=== PATIENT | male | born 1960 | race African-American/Black ===

== ENCOUNTER → 2020-04-07 | Outpatient (CLI) | payer BC ==
[~2020-04-07] MED LIST: ETOD400T PO; FERR325T14 PO; HYDR-2761 PO; LISI-334 PO; LISI1TAB23 PO; MELO15TA6 PO; MULT-245 PO; WARF5TAB2 PO
[2020-04-07 09:47] LABS: ALBUMIN 3.9 g/dL (3.4-5.0); ANION GAP 5 (6-14); BLOOD UREA NITROGEN 17 mg/dL (8-26); CALCIUM 9.3 mg/dL (8.5-10.1); CARBON DIOXIDE 33 mmol/L (21-32); CHLORIDE 100 mmol/L (98-107); CREATININE 1.3 mg/dL (0.7-1.3); GFR 67.9; GLUCOSE 94 mg/dL (70-99); POTASSIUM 3.8 mmol/L (3.5-5.1); SODIUM 138 mmol/L (136-145)
[2020-04-07 09:48] LABS: C-REACTIVE PROTEIN < 0.5 mg/L (0-3.3)
[2020-04-07 09:59] LABS: BASO % 1 % (0-3); EOS # 0.1 x10^3/uL (0.0-0.7); EOS % 1 % (0-3); HEMATOCRIT 45.1 % (39.0-53.0); HEMOGLOBIN 15.3 g/dL (13.0-17.5); LYMPH # 1.6 x10^3/uL (1.0-4.8); LYMPH % 37 % (24-48); MEAN CORPUSCULAR HEMOGLOBIN 31 pg (25-35); MEAN CORPUSCULAR HGB CONC 34 g/dL (31-37); MEAN CORPUSCULAR VOLUME 91 fL (79-100); MONO # 0.3 x10^3/uL (0.0-1.1); MONO % 8 % (0-9); NEUT # 2.3 x10^3/uL (1.8-7.7); NEUT % 54 % (31-73); PLATELET COUNT 182 x10^3/uL (140-400); RED BLOOD COUNT 4.98 x10^6/uL (4.30-5.70); RED CELL DISTRIBUTION WIDTH 12.9 % (11.5-14.5); WHITE BLOOD COUNT 4.3 x10^3/uL (4.0-11.0)
[2020-04-07 10:11] LABS: PROTHROMBIN TIME PATIENT 13.3 SEC (11.7-14.0)
--- NOTE | 2020-04-07 13:13 | EKG ---
[facility] [address] [place] [address] Test Date: 2020-04-07 Test Time: 13:11:07 Pat Name: ROSARIO BLANC Department: Room: Gender: M Circuits Engineer: TINY : 1960 Requested By: ASH GILES Order Number: [id number] Reading MD: Leo Gann MD Measurements Intervals [place] Rate: 59 P: 36 CO: 204 QRS: -14 QRSD: 94 T: 39 QT: 390 QTc: 390 Interpretive Statements SINUS RHYTHM Electronically Signed On 04-08-2020 9:54:57 CDT by Leo Gann MD
--- NOTE | 2020-04-07 14:52 | RAD ---
Chest radiograph 04/07/2020 8:47 AM INDICATION: Tobacco abuse, preoperative evaluation COMPARISON: None available TECHNIQUE: Frontal and lateral views of the chest are provided. FINDINGS: The cardiomediastinal silhouette is within normal limits. There are no pleural effusions. There is no pulmonary vascular congestion. There is no pneumothorax. The lungs are clear. No significant osseous abnormality is identified. IMPRESSION: No acute cardiopulmonary process. Electronically signed by: Karin Negrete MD (04/07/2020 2:49 PM) [id number]
[2020-04-08 01:08] LABS: HEMOGLOBIN A1C 5.4 % (4.8-5.6)
== END | disposition home or self-care (01) ==
LOC: SURGPAT 13:14
PROVIDERS: ATTEND Orthopaedic Surgery
DX: Z01.812 Encounter for preprocedural laboratory examination (principal); M17.0 Bilateral primary osteoarthritis of knee; I10 Essential (primary) hypertension; Z96.652 Presence of left artificial knee joint
CPT/HCPCS: 36415; 71046; 80048; 82040; 82306; 83036; 85025; 85610; 85730; 86140; 87641; 93005

== ENCOUNTER 2020-04-29 08:33 | Observation (INO) | payer BC ==
[2020-04-29] VITALS (7 sets, daily range): BP systolic 110–142; BP diastolic 62–85
[~2020-04-29] VITALS: Ht 177.8 cm; Wt 99.4 kg
[~2020-04-29 08:33] MED LIST changes: +ACETAMINOPHEN 500 MG TABLET PO PRN; +GABAPENTIN 300 MG CAPSULE. PO PRN; +HYDROmorphone 2 MG/ML VIAL IV PRN; +IV RINGERS,LACTATED 1000ML 1,000 ML IV SCH; +MELOXICAM 7.5 MG TABLET PO PRN; +MORPHINE SULFATE 2 MG/ML VIAL. IV PRN; +MORPHINE SULFATE 5 MG, KETOROLAC 30MG VIAL 30 MG, ROPIVacaine 0.5% PF 60 ML, EPINEPHrin... INT ART ONE; +ONDANSETRON PF 4 MG/2 ML VIAL. IV PRN; +PROCHLORPERAZINE 10 MG/2 ML VIAL. IV PRN; +TRANEXAMIC ACID 1,000 MG in IV NS 50ML -- 1ST BAG INJ ONE; +TRANEXAMIC ACID 1,000 MG in IV NS 50ML -- 2ND BAG INJ ONE; +fentaNYL PF VIAL 100 MCG/2 ML VIAL IV PRN
[2020-04-29] MEDS ORDERED: LIDOCAINE 2% PF 5 ML VIAL. ONE (08:49)
[2020-04-29] MEDS ORDERED: PROPOFOL 10 MG/ML (20ML) VIAL. IV ONE (08:49)
[2020-04-29] MEDS ORDERED: ONDANSETRON PF 4 MG/2 ML VIAL. ONE (08:49)
[2020-04-29] MEDS ORDERED: DEXAMETHASONE SOD PHOS 4 MG/ML VIAL ONE (08:49)
[2020-04-29] MEDS ORDERED: fentaNYL PF VIAL 100 MCG/2 ML VIAL ONE (08:49)
[2020-04-29] MEDS ORDERED: WARF-31 PO (09:42)
[2020-04-29] MEDS ORDERED: MELO15TA23 PO (09:43)
[2020-04-29 09:59] LABS: PROTHROMBIN TIME PATIENT 13.7 SEC (11.7-14.0)
--- NOTE | 2020-04-29 10:38 | HP ---
ADMIT DATE: 04/29/2020 CHIEF COMPLAINT: Bilateral knee pain, left worse than right. HISTORY OF PRESENT ILLNESS: The patient has atraumatic onset bilateral knee pain over the past couple of years, left much worse than right, significantly worsening and affecting his activities of daily living. He had previously made arrangements at [facility] injections, but those were not performed due to COVID and we had previously discussed in clinic more definitive treatment options. PAST MEDICAL HISTORY: Significant for degenerative joint disease, kidney stones, hypertension. PAST SURGICAL HISTORY: Right total hip arthroplasty, kidney stone surgery with lithotripsy, appendectomy and prostate cancer surgery. FAMILY HISTORY: Father is with heart problems and mother is alive and healthy. SOCIAL HISTORY: Denies smoking, alcohol or drug use. MEDICATIONS: Hydrocodone, multivitamin, lisinopril. ALLERGIES: He has no known drug allergies. REVIEW OF SYSTEMS: Denies any recent fever, chills, constitutional symptoms, radiating pain, focal weakness, numbness, tingling, visual changes, but is significant for bilateral knee pain, activity related left worse than right. PHYSICAL EXAMINATION: VITAL SIGNS: Per admission sheet. HEENT: Atraumatic, normocephalic. HEART: Regular rate and rhythm. LUNGS: Clear to auscultation bilaterally. ABDOMEN: Benign. EXTREMITIES: Examination of both knees, he has joint line tenderness bilaterally, left more than the right, mostly medial, slight varus deformities bilaterally without gross ligament instability. He has mild patellofemoral crepitus, good tracking bilaterally, normal alignment and stability of bilateral hips and ankles. IMAGING: X-rays show tricompartmental degenerative change and slight varus in both knees, left worse than right. No gross instability. IMPRESSION: 1. Primary osteoarthritis, both knees. 2. Left knee pain, more so than right. TREATMENT PLAN: We had previously gone over the treatment options, both operative and nonoperative including the possibility of infection, premature wear or loosening, continued pain, nerve root or blood vessel damage, medical or other anesthetic complications among others and the postoperative course of total knee arthroplasty. All his questions were answered. He wishes to proceed with left total knee arthroplasty today and potentially in a couple of months proceed with a right total knee arthroplasty eventually. All his questions were answered. Consent was obtained. ASH GILES MD DR: ILENE/pancho JOB#: [id number] / [id number]
[2020-04-29] MEDS ORDERED: SCOPOLAMINE 1.5MG PATCH. TD ONE (11:04)
[2020-04-29] MEDS ORDERED: VANCOMYCIN 1 GM VIAL. ONE (11:27)
[2020-04-29] MEDS ORDERED: HYDROmorphone 2 MG/ML VIAL ONE (11:38)
[2020-04-29] MEDS ORDERED: KETAMINE HCL IN NACL, ISO-OSM 50 MG/5 ML SYRINGE ONE (11:45)
[2020-04-29] MEDS ORDERED: SEVOFLURANE 61 TO 120 MINUTES. IH ONE (11:47)
--- NOTE | 2020-04-29 13:53 | PDOC4 ---
Operative Note Operative Note Date of surgery: 04/29/2020 Preoperative diagnosis: Left knee degenerative joint disease Postoperative diagnosis: Same Operative procedure: Left total knee arthroplasty Surgeon: Tatiana Assistants: Chapo Nascimento nurse practitioner Anesthesia: General Estimated blood loss: 100 cc Complications: None Specimens: Cartilage surfaces to pathology Drains: Hemovac drain and intra-articular catheter Operative indications: Please see my dictated preoperative history and physical and clinic notes for detailed operative indications Operative text: Patient was identified procedure verified patient placed in the supine position on the operating table. After adequate amounts of general anesthesia were administered the left lower extremity was prepped and draped in standard sterile fashion with a thigh tourniquet. After timeout was performed patient procedure identified and verified the left lower extremity was exsanguinated by Esmarch bandage tourniquet inflated to 300 mmHg. A midline incision was made with a mid vastus extending to a medial parapatellar approach. Patella was everted fat pad was excised distal femur was drilled and the distal femur was cut 2 mm extra from the standard cut due to a flexion contracture. Proximal tibia cut was made with the extra-articular cutting jig adjusted to achieve alignment with the second toe. Distal femur was sized at a size 9 AP and chamfer cuts were made and flexion extension balancing carried out. A size G tibial component was placed along with a size 9 femur persona standard component with a medial congruent trial component. Excellent ligament balance and stability were noted both in flexion and extension. Osteophytes were trimmed from the patella and a size 35 patella component trial was medialized and noted to have excellent tracking. Tibia was drilled and broached and femora l lugs were drilled. Trial components were removed through irrigation carried out with normal saline solution. The following components were then cemented in place with polymethylmethacrylate cement: A size G persona tibial component. A size 9 standard persona femoral component. A size 35 patella. Excess cement was removed and a vitamin E medial congruent spacer was locked in place. Dilute Betadine lavage was then used and followed up with normal saline solution and pulse lavage. Intra-articular mixture was injected periosteally and throughout the joint capsule. Hemovac drain and intra-articular catheter were then placed. 1 g vancomycin was placed in the knee joint and closure of the medial approach was carried out with running #1 PDS strata fix suture. Subcutaneous closure with buried Vicryl suture subcuticular closure with 3-0 strata fix Monocryl. Thuy dressing was placed patient was returned to recovery room in stable condition having tolerated procedure well toes were noted to be warm pink foll owing deflation of the tourniquet. high [employer] assistant football coach was present for the procedure and assisted in the patient positioning prepping draping retraction closure and dressings. ASH GILES MD Apr 29, 2020 13:53
[2020-04-29] MEDS ORDERED: IV NORMAL SALINE 1000ML BAG 1,000 ML IV SCH (14:14)
[2020-04-29] MEDS ORDERED: MORPHINE SULFATE 2 MG/ML VIAL. IVP PRN (14:15)
[2020-04-29] MEDS ORDERED: diphenhydrAMINE 50 MG/ML VIAL IVP PRN (14:15)
[2020-04-29] MEDS ORDERED: 0.9 % SODIUM CHLORIDE 10 ML DISP.SYRIN. IV PRN (14:15)
[2020-04-29] MEDS ORDERED: ZOLPIDEM 5 MG TABLET. PO PRN (14:15)
[2020-04-29] MEDS ORDERED: DEXTROSE 50% 25 GM / 50ML DISP.SYRIN. IV PRN (14:15)
[2020-04-29] MEDS ORDERED: PROCHLORPERAZINE 5 MG TABLET. PO PRN (14:15)
[2020-04-29] MEDS ORDERED: fentaNYL PF VIAL 100 MCG/2 ML VIAL IVP PRN (14:15)
[2020-04-29] MEDS ORDERED: CALCIUM CARBONATE 500 MG TAB.CHEW PO PRN (14:15)
--- NOTE | 2020-04-29 15:06 | RAD ---
Examination: KNEE LEFT 2V History: Reason: POST OP / : Comparison/Correlation: None Findings: Frontal and lateral views of the left knee were obtained portable technique. Crosstable technique utilized for the lateral view. Total left knee joint arthroplasty is evident. Drainage catheter tubing within the knee joint capsule is evident along with gas and minimal effusion. Soft tissue gas compatible with postoperative status is noted about the knee. No fracture visualized. Impression: Left total knee joint arthroplasty is intact. Postoperative findings noted. Electronically signed by: Anthony Wong MD (04/29/2020 3:03 PM) KEN
--- NOTE | 2020-04-29 15:41 | NUR ---
RECEIVED FROM RECOVERY. DAUGHTER AT BEDSIDE. HE HAS GOOD SENSATION, PULSES AND MOTION BILATERAL LOWER EXTREMITIES.. HE IS DROWSY BUT ANSWERS QUESTIONS. APPLIED O2 AT 3 L ; DESATS WHILE SLEEPING. HE IS RATING HIS PAIN 3-4 AND IS COMFORTABLE. HEMOVAC IS PATENT WITH SEROSANGUINEOUS DRAINAGE. CARLIN AND IAC INTACT.
[2020-04-29] MEDS ORDERED: WARFARIN 7.5 MG TABLET. PO ONE (16:00)
[2020-04-29] MEDS: FERROUS SULFATE 325 MG TABLET. PO SCH (17:00)
[2020-04-29] MEDS: ONDANSETRON PF 4 MG/2 ML VIAL. IVP SCH (17:06)
[2020-04-29] MEDS: KETOROLAC 30MG VIAL 30 MG, BUPIVACAINE MPF 0.25% 20 ML, EPINEPHrine 0.5 MG in TOTAL VOL... INT ART SCH (17:41)
[2020-04-29] MEDS: ONDANSETRON ODT 4 MG TAB.RAPDIS. PO SCH (17:44)
[2020-04-30 03:10] VITALS: BP 110/62
[2020-04-30] MEDS: ONDANSETRON ODT 4 MG TAB.RAPDIS. PO SCH ×3 (05:15→12:00)
[2020-04-30] MEDS: ONDANSETRON PF 4 MG/2 ML VIAL. IVP SCH ×3 (05:16→12:00)
[2020-04-30 05:23] LABS: PROTHROMBIN TIME PATIENT 14.5 SEC (11.7-14.0)
[2020-04-30] MEDS: KETOROLAC 30MG VIAL 30 MG, BUPIVACAINE MPF 0.25% 20 ML, EPINEPHrine 0.5 MG in TOTAL VOL... INT ART SCH (05:33)
[2020-04-30] MEDS: traMADol 50 MG TABLET PO SCH ×3 (05:33→18:00)
[2020-04-30] MEDS: GABAPENTIN 100 MG CAPSULE. PO SCH ×3 (05:33→20:41)
[2020-04-30] MEDS ORDERED: MAGNESIUM HYDROXIDE 2,400 MG/30 ML ORAL.SUSP. PO PRN (06:00)
--- NOTE | 2020-04-30 08:30 | NUR ---
up in recliner. denies nausea at this time. He was able to tolerate breakfast. iv fluids dc'd. am care completed with Occupational care.
--- NOTE | 2020-04-30 08:53 | PDOC ---
PROGRESS NOTES Date of Service DATE: 04/30/20 TIME: 08:50 Subjective Subjective Problems overnight: Pain is well controlled and he is pleased with his progress so far no other complaints Objective Vital Signs Vital Signs Date Time Temp Pulse Resp B/P (MAP) Pulse Ox O2 Delivery O2 Flow Rate FiO2 04/30/20 06:33 18 04/30/20 05:33 Nasal Cannula 2.0 04/30/20 03:10 97.7 61 110/62 (78) 94 97.7 Physical Exam He has good early range of motion ligament balance patellofemoral tracking distal neurovascular status intact Labs Laboratory Tests Test 04/29/20 08:30 04/30/20 04:25 Prothrombin Time 13.7 SEC (11.7-14.0) 14.5 SEC (11.7-14.0) Prothromb Time International Ratio 1.1 (0.8-1.1) 1.2 (0.8-1.1) Activated Partial Thromboplast Time 29 SEC (24-38) Hemoglobin 12.6 g/dL (13.0-17.5) Laboratory Tests Test 04/30/20 04:25 Hemoglobin 12.6 g/dL (13.0-17.5) Prothrombin Time 14.5 SEC (11.7-14.0) Prothromb Time International Ratio 1.2 (0.8-1.1) Imaging Postop x-rays show left total knee arthroplasty in good alignment Assessment Assessment POD#1 left total knee arthroplasty Plan Plan of Care Weightbearing as tolerated mobilize with physical therapy standard total knee protocol Coumadin anticoagulation Placement when medically stable Justicifation of Admission Dx: Justifications for Admission: Justification of Admission Dx: Yes (Requiring and weaning from some oxygen) ASH GILES MD Apr 30, 2020 08:53
[2020-04-30] MEDS: LISINOPRIL 10 MG TABLET PO SCH (09:00)
[2020-04-30] MEDS: hydroCHLOROthiazide 12.5 MG CAPSULE PO SCH (09:00)
[2020-04-30 09:29] VITALS: BP 104/66
[2020-04-30] MEDS: oxyCODONE IR 5 MG TABLET PO PRN (09:30)
[2020-04-30] MEDS: MELOXICAM 7.5 MG TABLET PO SCH (09:30)
[2020-04-30] MEDS: MULTIVITAMIN with MINERAL TABLET. PO SCH (09:31)
[2020-04-30] MEDS: ACETAMINOPHEN 500 MG TABLET PO SCH ×3 (09:31→20:40)
[2020-04-30] MEDS: FERROUS SULFATE 325 MG TABLET. PO SCH ×2 (09:31→18:39)
--- NOTE | 2020-04-30 10:39 | NUR ---
Pharmacy Warfarin Dosing Note S:Pharmacy consulted to assist with anticoagulation therapy started with target INR: 1.6 - 2.5 O:ROSARIO BLANC is a 59 year old M with TKA LABS: Last INR: 1.2 Last HGB: 12.6 Last dose of 7.5 mg given on 04/29/20 at 2100 Drug Interaction Changes: Same Interacting Drug Ongoing Drug Interactions: Meloxicam A:INR of 1.2 is below desired range. Target range for this patient is: 1.6 - 2.5 P: Warfarin dose: 5 mg Today at 1600 Bridge Therapy: None Next INR due 05/01/20 Pharmacy anticoagulation service will continue to follow. ZEINAB ESPINAL R[facility], 04/30/20 [id number]
[2020-04-30] MEDS ORDERED: ONDANSETRON ODT 4 MG TAB.RAPDIS. PO PRN (12:00)
[2020-04-30] MEDS ORDERED: ONDANSETRON PF 4 MG/2 ML VIAL. IVP PRN (12:00)
[2020-04-30] MEDS ORDERED: BISACODYL 10 MG SUPP.RECT. PR PRN (16:00)
[2020-04-30] MEDS ORDERED: WARFARIN 5 MG TABLET. PO ONE (16:00)
[2020-05-01] MEDS: ACETAMINOPHEN 500 MG TABLET PO SCH ×3 (03:00→14:59)
[2020-05-01 05:00] VITALS: BP 120/67
[2020-05-01] MEDS: GABAPENTIN 100 MG CAPSULE. PO SCH ×3 (06:49→21:11)
[2020-05-01] MEDS: traMADol 50 MG TABLET PO SCH ×4 (06:49→16:45)
[2020-05-01 08:13] LABS: HEMATOCRIT 37.6 % (39.0-53.0)
[2020-05-01 08:26] LABS: PROTHROMBIN TIME PATIENT 17.9 SEC (11.7-14.0)
[2020-05-01] MEDS: hydroCHLOROthiazide 12.5 MG CAPSULE PO SCH (08:32)
[2020-05-01] MEDS: MULTIVITAMIN with MINERAL TABLET. PO SCH (08:32)
[2020-05-01] MEDS: FERROUS SULFATE 325 MG TABLET. PO SCH ×2 (08:32→16:44)
[2020-05-01] MEDS: MELOXICAM 7.5 MG TABLET PO SCH (08:32)
[2020-05-01] MEDS: oxyCODONE IR 5 MG TABLET PO PRN ×2 (08:32→21:10)
[2020-05-01] MEDS: LISINOPRIL 10 MG TABLET PO SCH (08:33)
--- NOTE | 2020-05-01 12:54 | NUR ---
Pharmacy Warfarin Dosing Note S: Pharmacy consulted to assist with anticoagulation therapy started 04/29/20 O: ROSARIO BLANC is a 59 year old M with TKA LABS: Last INR: 1.5 Last HGB: 13 Last dose of 5 mg given on 04/30/20 at 1838 Ongoing Drug Interactions: Meloxicam A:INR of 1.5 is below desired range. Target range for this patient is: 1.6 - 2.5 P: Warfarin dose: 3 mg today @ 1600 Bridge Therapy: None Next HGB due 05/02/20 Pharmacy anticoagulation service will continue to follow. ARRON [facility], 05/01/20 5532
[2020-05-01] MEDS ORDERED: WARFARIN 3 MG TABLET. PO ONE (16:00)
[2020-05-01] MEDS ORDERED: WARF4TAB64 PO (18:25)
[2020-05-01 18:28] VITALS: BP 121/71
--- NOTE | 2020-05-01 20:12 | NUR ---
Dr. Simpson here. Patient cleared for discharge.
[2020-05-01] MEDS ORDERED: OXYC-325 PO (20:23)
--- NOTE | 2020-05-01 20:25 | SNU/HH DC ---
DISCHARGE WITH HOME HEALTH DISCHARGE INFORMATION: Condition on Discharge: Stable CODE STATUS: Code Status: Full HOME HEALTH: Face to Face: I certify this patient is under my care and that I, or a nurse practitioner or physician's student assistant working with me, had a face to face encounter that meets the physician face to face encounter requirements with this patient on [05/01/20]. Correction For: Assess & Educate Safety RN For Eval/Treatment: Yes Physical Therapy For: Evalulation/Treatment Pt Meets Homebound Status: Limited distance walking POST DISCHARGE ORDERS: Activity Instructions for Disc: Walk in house Weight Bearing Status after Di: No restrictions, Full weight bearing, As tolerated Bathing Instructions: Shower-keep dressing dry, No Tub Bath until see Wound/Incision Care: Ice to area for comfort, Keep wound/cast CDI, Do not ch jo ann dressing (Call if dressing saturated, cut and tape over outlet when suction machine quits in 1 week postop) Other wound/incision instructi: remove battery pack on Sunday 05/06 unscrew tubing tape end downwards CHECKS AFTER DISCHARGE: Comment: INR to be drawn every Tuesday starting 05/05; 05/12 FOLLOW-UP: Follow Up With: F/u with Dr. Simpson on 05/12/at 0915 Warfarin Follow UP: [facility] managing coumadin ??? call [phone] TREATMENT/EQUIPMENT ORDERS: Adaptive Equipment Issued: None CERTIFICATION STATEMENT: Certification Statement: Certification Statement: Based on the above finding, I certify that this patient is confined to the home and needs intermittent nursing home care, physical therapy and/or speech therapy, or continues to need occupational therapy.~ This patient is under my care, and I have initiated the establishment of the plan of care.~ This patient will be followed by myself or a community physician who will periodically review the plan of care. Home Meds Reported Medications Warfarin Sodium (WARFARIN SODIUM) 4 Mg Tablet, 4 MG PO DAILYWSUP for blood thinner, #30 TAB 0 Refills 05/01/20 Meloxicam (MELOXICAM) 15 Mg Tablet, 15 MG PO X1 for HS SURGERY, TAB 04/29/20 Lisinopril/Hydrochlorothiazide (LISINOPRIL-HCTZ 10-12.5 MG TAB) 1 Each Tablet, 1 TAB PO DAILY for CONTROL BP, #90 TAB 3 Refills 04/17/20 Hydrocodone Bit/Acetaminophen (HYDROCODONE-APAP 5-325 ) 1 Tab Tablet, 1 TAB PO PRN Q6HRS PRN for PAIN, TAB 0 Refills 04/17/20 Multivitamin (MULTI VITAMIN DAILY) 1 Each Tablet, 1 EACH PO DAILY08 08/31/13 Discontinued Reported Medications Warfarin Sodium (WARFARIN SODIUM) 5 Mg Tablet, 5 MG PO X1 for HS SURGERY, #30 TAB 04/29/20 ASH SIMPSON MD May 01, 2020 20:25
--- NOTE | 2020-05-01 21:30 | NUR ---
Saline lock DC'd. Prescription given to daughter. Discharge instructions discussed w/ patient and daughter. Copies given to patient. Escorted via W/C to the daughter's car. Dismissed in good condition.
--- NOTE | 2020-05-02 13:08 | PATHOLOGY ---
[facility] Accession Number: [id number] . 01 Material submitted: . knee - LEFT KNEE BONE AND TISSUE. Modifiers: left . 01 Clinical history: . PRIMARY OSTEOARTHRITIS . 02 Diagnosis: Bone and soft tissue "left knee", arthroplasty: - Erosion of articular cartilage with eburnation of the underlying subchondral bone, consistent with osteoarthritis. (MLK/db; 05/01/2020) LBQ 05/02/2020 1233 Local . 02 Electronically signed: . Wojciech Johnson MD, Pathologist NPI- [id number] . 01 Gross description: . The specimen is received in formalin, labeled "Torrey Ray, left knee bone and tissue". Received are multiple segments of bone, including the tibial plateau, admixed with soft tissue measuring 10.5 x 9.8 x 3.2 cm in aggregate dimensions. Meniscus is present. The articular surfaces are smooth to granular in appearance with evidence of eburnation. The specimen is submitted representatively in cassette A1, following decalcification. (CAA; 04/30/2020) QAC/QAC 04/30/2020 1510 Local . 02 Pathologist provided ICD-10: M17.12 . 02 CPT . 061490, 237551 Specimen Comment: A courtesy copy of this report has been sent to [phone], [phone] Specimen Comment: [id number] Specimen Comment: Report sent to / DR MASON Performed at: 01 [facility] [address], [place] [id number] MD Giovanni Bateman MD Phone: [phone] Performed at: 02 [facility] [address] [place], [place] [id number] MD Akshat Lopez MD Phone: [phone]
--- NOTE | 2020-05-04 11:07 | DS ---
DATE OF DISCHARGE: 05/01/2020 PRINCIPAL DIAGNOSIS: Degenerative left knee. PROCEDURE: Left total knee arthroplasty. DISPOSITION: Home with home health. FOLLOWUP: Dr. Simpson in 2 weeks. ACTIVITY: Weightbearing as tolerated, standard total knee protocol. Maintain CARLIN dressing. A cut off tail of dressing and tape over to remain sealed when suction machine quits. DISCHARGE INSTRUCTIONS: Report any redness, drainage, fever, chills, uncontrolled pain, or other problems. DISPOSITION MEDICATIONS: Include Percocet 5/325 one p.o. q. 4 hours p.r.n. pain, dispensed #60, Warfarin as directed by [facility] along with the required testing. Maintain lisinopril/hydrochlorothiazide 10/12.5 daily and multivitamin. Stop hydrocodone. BRIEF DESCRIPTION OF HOSPITAL COURSE: The patient underwent an uncomplicated left total knee arthroplasty and remained medically stable and had good pain control. Afterward displayed a good safe ambulation and transfers and was discharged on postop day #2 in stable condition with home health followup. ASH SIMPSON MD DR: ILNEE/pancho JOB#: [id number] / [id number]
--- NOTE | 2020-05-12 07:53 | NUR ---
Stop time for Cefazolin given at 0438 on [id number] Stop times for Toradol given on 04/29 at [id number] 04/30 at [id number]
== END 2020-05-01 21:30 | disposition home health service (06) ==
LOC: SURG 08:33 → 4 SOUTHEST 14:14
PROVIDERS: ADMIT Orthopaedic Surgery; ATTEND Orthopaedic Surgery
DX: M17.0 Bilateral primary osteoarthritis of knee (principal); I10 Essential (primary) hypertension; M25.562 Pain in left knee; M25.561 Pain in right knee; Z87.442 Personal history of urinary calculi; Z79.899 Other long term (current) drug therapy
CPT/HCPCS: 27447; 36415; 73560; 85014; 85018; 85610; 85730; 86850; 86900; 86901; 88305; 88311; 96365; 96366; 96375; 97116; 97150; 97162; 97165; 97530; 97535; A7015; C1713; C1769; C1776; G0378; G0379; J0171; J0690; J1100; J1170; J1885; J2270; J2405; J2704; J2795; J3010; J3370; J3490; J7030; J7120